=== PATIENT | male | born 1950 | race Caucasian/White ===

== ENCOUNTER 2021-06-02 20:22 | Emergency (ER) | payer OTHER, MEDICARE ==
[2021-06-02 21:16] VITALS: BP 130/78; PULSE 70; TEMP 98.6; BMI 29.9
[2021-06-02 21:34] LABS: BASO % 0.9 % (0-2.0); EOS % 6.4 % (0-4.5); HEMATOCRIT 39.7 % (35.4-49); HEMOGLOBIN 13.6 GM/dl (11.7-16.9); LYMPH % 16.1 % (8-40); MCH 33.5 pg (25.7-33.7); MCHC 34.2 g/dl (32.0-35.9); MEAN CELL VOLUME 98.2 fl (80-96); MEAN PLT VOLUME 8.4 fl (7.5-11.1); MONO % 10.4 % (3.8-10.2); NEUT % 66.2 % (42.8-82.8); PLATELET COUNT 249 10^3/uL (134-434); RBC 4.05 M/mm3 (4.00-5.60); RDW 11.9 % (11.9-15.9); WHITE BLOOD COUNT 6.2 K/mm3 (4.0-10.8)
[2021-06-02 21:36] LABS: ANION GAP 11 MMOL/L (8-16); CALCIUM 8.8 mg/dl (8.5-10); CHLORIDE 101 mmol/L (98-107); CO2 27 mmol/L (21-32); CREATININE 1.4 mg/dl (0.55-1.3); GLUCOSE,RANDOM 98 mg/dl (74-106); SODIUM 139 mmol/L (136-145)
[2021-06-02 21:39] LABS: ALBUMIN 3.8 g/dl (3.4-5.0); ALK PHOS 124 U/L (45-117); BILIRUBIN,TOTAL 0.6 mg/dl (0.2-1); SGOT/AST 27 U/L (15-37); SGPT/ALT 35 U/L (13-61); TOT PROT 6.3 g/dl (6.4-8.2)
== END 2021-06-02 23:24 | disposition home or self-care (01) ==
LOC: FER 20:22
DX: I49.3 Ventricular premature depolarization (principal)
CPT/HCPCS: 36415; 71045-TC-FY; 80053; 82550; 82553; 83735; 84484; 85025; 93005; 99283-25